=== PATIENT | female | born 1995 | race Caucasian/White ===

== ENCOUNTER 2016-10-05 18:30 | Emergency (ER) | payer BC ==
[~2016-10-05] VITALS: Ht 162.6 cm; Wt 58.2 kg
[~2016-10-05 18:30] MED LIST: NO HOME MEDICATIONS
[2016-10-05 18:31] VITALS: BP 152/77; PULSE 89
[2016-10-05] MEDS ORDERED: PORTIA-28 30 MC1 TAB PO (18:33)
[2016-10-05] MEDS ORDERED: NORCO 325 MG-51 TAB PO (19:26)
== END 2016-10-05 19:38 | disposition home or self-care (01) ==
LOC: COL.ER 18:30
DX: S09.90XA Unspecified injury of head, initial encounter (principal); S00.12XA Contusion of left eyelid and periocular area, initial encounter; W21.07XA Struck by softball, initial encounter; Y92.830 Public park as the place of occurrence of the external cause; R40.2412 Glasgow coma scale score 13-15, at arrival to emergency department